=== PATIENT | female | born 1945 | race Caucasian/White ===

== ENCOUNTER → 2023-09-23 | Outpatient (CLI) | payer OTHER, SELFPAY ==
[2023-09-26 05:07] LABS: Chromogranin A 61.3 ng/mL (0.0-101.8)
== END | disposition home or self-care (01) ==
PROVIDERS: PCP Family Medicine; Referring Provider Surgery; Visit Provider Surgery
DX: C49.A0 Gastrointestinal stromal tumor, unspecified site (principal)
CPT/HCPCS: 36415; 86316

== ENCOUNTER → 2024-09-05 | Outpatient (CLI) | payer SELFPAY, OTHER | END | disposition home or self-care (01) | LOC: CT 08:23 | PROVIDERS: PCP Family Medicine; Referring Provider Internal Medicine Hematology & Oncology; Visit Provider Internal Medicine Hematology & Oncology | DX: C49.A3 Gastrointestinal stromal tumor of small intestine (principal) | CPT/HCPCS: 71260; 74177; Q9967 ==

== ENCOUNTER → 2024-10-05 | Outpatient (CLI) | payer OTHER, SELFPAY ==
--- NOTE | 2024-10-05 08:07 | US_ITS ---
PROCEDURE: TRANSVAGINAL NON- 10/05/2024 REASON FOR EXAM: ENDOMETRIAL THICKENING TECHNIQUE: TRANSVAGINAL NON- COMPARISON: None FINDINGS: LMP: Patient is postmenopausal. Measurements: Uterus: 6.8 cm x 4 cm x 3 cm with a volume of 42.56 mL Endometrial Thickness: Endometrium is thickened measuring 5 mm. It is heterogeneous. Right Ovary: Not visualized. Left Ovary: Not visualized. Uterus: 5 mm x 5 mm x 5 mm fundal fibroid. Endometrium: Endometrial thickening. It is heterogeneous. Right ovary: Not visualized. Left ovary: Not visualized. Other: No large pelvic mass identified. US/Transvaginal Non- IMPRESSION: Endometrial thickening. Further follow-up recommended. Reading Location: [id number]
== END | disposition home or self-care (01) ==
PROVIDERS: PCP Family Medicine; Referring Provider Internal Medicine Hematology & Oncology; Visit Provider Internal Medicine Hematology & Oncology
DX: R93.89 Abnormal findings on diagnostic imaging of other specified body structures (principal)
CPT/HCPCS: 76830

== ENCOUNTER → 2025-02-13 | Outpatient (CLI) | payer SELFPAY, OTHER ==
--- NOTE | 2025-02-13 08:34 | CT_ITS ---
PROCEDURE: CT CHEST, ABD, PEL W/CONTRAST 02/13/2025 REASON FOR EXAM: GIST TECHNIQUE: Chest, abdomen and pelvis CT with intravenous contrast. Coronal and Sagittal reconstruction series were generated. One or more dose reduction techniques were used (e.g., Automated exposure control, adjustment of the mA and/or kV according to patient size, use of iterative reconstruction technique. PATIENT PREPARATION: Per protocol ORAL CONTRAST TYPE: Administered; type and volume information not provided IV CONTRAST: Isovue 370 VOLUME: 100mL RADIATION DOSE SUMMARY: CTDlvol: 15.2+ 7.78+ 20.16 mGy DLP: 1161.3 mGycm COMPARISON: 09/05/2024. A comparison dated 09/14/2023 is of nondiagnostic image quality. FINDINGS: Mild motion limitation through the mid to lower lungs. Heart/pericardium: Mild aortic annular calcification. Suspect at least trace to mild coronary atherosclerosis. Aorta: Trace atherosclerosis. Essentially two-vessel arch anatomy, normal variant. Pulmonary arteries: Normal in caliber. Lymph nodes: Unremarkable. Lungs/pleura: 4 x 7 mm RIGHT apical ground-glass nodule (series 6 image 33). Minimal atelectasis/scarring. Airways: Unremarkable. Chest wall: Punctate thyroid nodules. Liver: Unremarkable. Spleen: Unremarkable. Gallbladder: Cholecystectomy. Pancreas: Unremarkable. Adrenals: Unremarkable. Kidneys: Punctate and small bilateral hypodensities too small to characterize, presumed cysts. Bowel: Diverticulosis. Appendectomy. Lymph nodes: Unremarkable. Vasculature: Atherosclerosis splenic artery originates directly. From the abdominal aorta, normal variant. Prominent LEFT ovarian and bilateral adnexal veins, nonspecific and frequently incidental but can be seen in the setting of pelvic congestion syndrome given the appropriate clinical context. Peritoneum: Unremarkable. Bladder: Underdistended and suboptimally evaluated. Bulging of the RIGHT posterolateral bladder wall suggesting endopelvic fascial defect. Reproductive Organs: As above, otherwise grossly unremarkable. Body Wall: Operative changes. Small RIGHT and tiny LEFT inguinal region hernias. Musculoskeletal: Degenerative findings. Demineralization. CT/CT Chest, Abd, Pel w/Contrast IMPRESSION: 1. Nonspecific 5.5 mm average axial diameter RIGHT apical groundglass nodule. Given the context, recommend follow-up to ensure stability. 2. No clearly suspicious findings within the abdomen/pelvis. 3. Additional description as above. Reading Location: [id number]
== END | disposition home or self-care (01) ==
PROVIDERS: PCP Family Medicine
DX: C49.A3 Gastrointestinal stromal tumor of small intestine (principal)
CPT/HCPCS: 71260; 74177; Q9967; A4216